=== PATIENT | female | born 1990 | race Hispanic/Latino ===

== ENCOUNTER 2021-09-13 14:47 | Emergency (ER) | payer OTHER ==
[~2021-09-13] VITALS: Ht 149.9 cm; Wt 38.6 kg
[2021-09-13] MEDS ORDERED: AMOX/CLAV 875/125MG TAB PO ONE (15:30)
[2021-09-13] MEDS ORDERED: TETANUS/DIPHTHERIA TOXOID [ADULT] 0.5 ML VIAL IM ONE (15:30)
[2021-09-13] MEDS ORDERED: AMOX-429 PO (15:52)
[2021-09-13 16:20] VITALS: BP 120/72
== END 2021-09-13 16:22 | disposition home or self-care (01) ==
LOC: EDH 14:47
DX: S00.81XA Abrasion of other part of head, initial encounter (principal); W54.0XXA Bitten by dog, initial encounter; Y93.89 Activity, other specified; Y92.89 Other specified places as the place of occurrence of the external cause; Y99.8 Other external cause status
CPT/HCPCS: 90471; 90714